=== PATIENT | male | born 1985 | race Caucasian/White ===

== ENCOUNTER 2022-01-23 11:38 | Emergency (ER) | payer OTHER ==
[~2022-01-23] VITALS: Ht 175.3 cm; Wt 86.2 kg
[~2022-01-23 11:38] MED LIST: AMOCLA875 PO; HYDACE5 PO; Mobic15 MG PO; RXHYDACE PO; Valium5 MG PO
== END 2022-01-23 13:40 | disposition home or self-care (01) ==
LOC: ER 11:38
DX: S01.01XA Laceration without foreign body of scalp, initial encounter (principal); W01.10XA Fall on same level from slipping, tripping and stumbling with subsequent striking against unspecified object, initial encounter
CPT/HCPCS: 12002; 90471; 90714; 99282; A9270